=== PATIENT | female | born 1990 | race Caucasian/White ===

== ENCOUNTER 2018-06-26 06:11 | Emergency (ER) | payer BC, OTHER ==
[~2018-06-26] VITALS: Ht 157.5 cm; Wt 53.4 kg
[2018-06-26 06:12] VITALS: BP 146/80
[2018-06-26 06:53] LABS: CULTURE INDICATED? NO; MICROSCOPIC NOT IND
[2018-06-26 07:01] LABS: BASOPHILS # (AUTO) 0.06 x10^3/uL (0-0.1); BASOPHILS % (AUTO) 1 % (0-1); EOSINOPHILS # (AUTO) 0.13 x10^3/uL (0-0.4); EOSINOPHILS % (AUTO) 2 % (1-7); LYMPHOCYTES # (AUTO) 1.84 x10^3/uL (1-3.4); LYMPHOCYTES % (AUTO) 28 % (22-44); MD NO; MEAN CORPUSCULAR HEMOGLOBIN 29.3 pg (27.0-34.8); MEAN CORPUSCULAR HGB CONC 33.9 g/dL (32.4-35.8); MEAN CORPUSCULAR VOLUME 86.4 fL (80-100); MEAN PLATELET VOLUME 7.6 fL (7.4-10.4); MONOCYTES # (AUTO) 0.31 x10^3/uL (0.2-0.8); MONOCYTES % (AUTO) 5 % (2-9); NEUTROPHILS # (AUTO) 4.19 x10^3/uL (1.8-6.8); NEUTROPHILS % (AUTO) 64 % (42-75); PLATELET COUNT 282 x10^3/uL (130-400); RED BLOOD COUNT 4.83 x10^6/uL (3.82-5.3); RED CELL DISTRIBUTION WIDTH 12.6 % (9.6-15.2)
[2018-06-26 07:10] LABS: ALANINE AMINOTRANSFERASE 19 U/L (12-78); ALBUMIN 3.8 g/dL (3.4-5.0); ANION GAP 9 mmol/L (5-15); CALCIUM 8.5 mg/dL (8.5-10.1); CHLORIDE 105 mmol/L (98-107); CREATININE 0.74 mg/dL (0.55-1.02)
[2018-06-26 07:12] LABS: ALKALINE PHOSPHATASE 62 U/L (45-117); BILIRUBIN,TOTAL 0.5 mg/dL (0.2-1.0); TOTAL PROTEIN 6.9 g/dL (6.4-8.2)
== END 2018-06-26 08:21 | disposition home or self-care (01) ==
LOC: ED 08:15
DX: K29.00 Acute gastritis without bleeding (principal); E10.65 Type 1 diabetes mellitus with hyperglycemia
CPT/HCPCS: 36415; 76700; 80053; 81003; 83690; 85025; 99285

== ENCOUNTER 2018-12-19 08:39 | Emergency (ER) | payer OTHER ==
[~2018-12-19] VITALS: Ht 154.9 cm; Wt 55.0 kg
[2018-12-19 09:48] VITALS: BP 143/98
--- NOTE | 2018-12-19 12:29 | NUR ---
TASK RN: Discharge instructions discussed with patient, verbalizes understanding, questions answered. Prescription provided with instruction for use.
== END 2018-12-19 12:31 | disposition home or self-care (01) ==
LOC: ED 11:25
DX: J01.10 Acute frontal sinusitis, unspecified (principal); J01.00 Acute maxillary sinusitis, unspecified; E11.65 Type 2 diabetes mellitus with hyperglycemia
CPT/HCPCS: 99283

== ENCOUNTER 2019-04-01 10:27 | Emergency (ER) | payer OTHER ==
[~2019-04-01] VITALS: Ht 154.9 cm; Wt 58.2 kg
[2019-04-01 13:32] VITALS: BP 122/71
== END 2019-04-01 14:50 | disposition home or self-care (01) ==
LOC: ED 12:06
DX: E11.65 Type 2 diabetes mellitus with hyperglycemia (principal); R53.83 Other fatigue
CPT/HCPCS: 36415; 80053; 81001; 81025; 82010; 82962; 85025; 99283

== ENCOUNTER 2021-04-09 13:53 | Emergency (ER) | payer OTHER ==
[~2021-04-09] VITALS: Ht 157.5 cm; Wt 60.0 kg
[2021-04-09 15:54] VITALS: BP 151/93
--- NOTE | 2021-04-09 16:02 | NUR ---
PT AMBULATED PER MD ORDER WITH SATING 100% RA. VSS. NO NEEDS AT THIS TIME
--- NOTE | 2021-04-09 16:49 | NUR ---
Task RN: discharge instructions given. All questions and concerns addressed. Patient ambulatory with a steady gait. Belongings with patient.
== END 2021-04-09 16:54 | disposition home or self-care (01) ==
LOC: ED 16:48
DX: J45.31 Mild persistent asthma with (acute) exacerbation (principal); E11.9 Type 2 diabetes mellitus without complications
CPT/HCPCS: 71045; 93005; 99283